=== PATIENT | female | born 1960 | race Caucasian/White ===

== ENCOUNTER 2018-04-18 07:19 | Outpatient (CLI) | payer SELFPAY ==
[2018-04-18 08:50] LABS: CHOL/HDL RATIO 3.44 (0.00-4.99)
[2018-04-18 09:02] LABS: HEMOGLOBIN A1C 5.3 % (4.5-6.2)
== END 2018-04-18 23:59 | disposition home or self-care (01) ==
LOC: HW HEART 07:19
DX: Z13.6 Encounter for screening for cardiovascular disorders (principal)
CPT/HCPCS: 36415

== ENCOUNTER 2019-02-13 07:43 | Emergency (ER) | payer OTHER, SELFPAY ==
[~2019-02-13] VITALS: Ht 165.1 cm; Wt 95.8 kg
[2019-02-13 08:24] VITALS: BP 147/64
[2019-02-13] MEDS ORDERED: HYDR-4383 PO (08:29)
== END 2019-02-13 09:15 | disposition home or self-care (01) ==
LOC: ER 07:44
DX: S60.212A Contusion of left wrist, initial encounter (principal); Z88.0 Allergy status to penicillin; Z79.899 Other long term (current) drug therapy; W18.30XA Fall on same level, unspecified, initial encounter; Y93.89 Activity, other specified; Y92.89 Other specified places as the place of occurrence of the external cause; Y99.9 Unspecified external cause status
CPT/HCPCS: 29125; 73110; 99284

== ENCOUNTER 2019-02-18 17:15 | Outpatient (CLI) | payer OTHER ==
[~2019-02-18 17:15] MED LIST: HYDR-4383 PO
== END 2019-02-18 23:59 | disposition home or self-care (01) ==
LOC: RAD 17:15
PROVIDERS: ATTEND Emergency Medicine
DX: M79.89 Other specified soft tissue disorders (principal); I10 Essential (primary) hypertension; Z88.0 Allergy status to penicillin
CPT/HCPCS: 73110

== ENCOUNTER 2019-02-22 11:42 | Emergency (ER) | payer OTHER ==
[~2019-02-22] VITALS: Ht 165.1 cm; Wt 93.2 kg
[2019-02-22 11:47] VITALS: BP 122/65
== END 2019-02-22 13:19 | disposition home or self-care (01) ==
LOC: ER 11:42
DX: S63.592A Other specified sprain of left wrist, initial encounter (principal); Z88.0 Allergy status to penicillin; Z79.899 Other long term (current) drug therapy; X50.0XXA Overexertion from strenuous movement or load, initial encounter; Y93.72 Activity, wrestling; Y92.89 Other specified places as the place of occurrence of the external cause; Y99.8 Other external cause status
CPT/HCPCS: 99281

== ENCOUNTER 2019-03-15 15:32 | Outpatient (CLI) | payer OTHER | END 2019-03-15 16:30 | disposition home or self-care (01) | LOC: ORTHO 15:32 | PROVIDERS: ATTEND Orthopaedic Surgery | DX: S62.102D Fracture of unspecified carpal bone, left wrist, subsequent encounter for fracture with routine healing (principal); X58.XXXD Exposure to other specified factors, subsequent encounter | CPT/HCPCS: 73110; G0463 ==

== ENCOUNTER 2019-07-08 11:12 | Emergency (ER) | payer OTHER ==
[~2019-07-08] VITALS: Ht 165.1 cm; Wt 95.5 kg
[2019-07-08 11:28] VITALS: BP 148/79
--- NOTE | 2019-07-08 12:15 | NUR ---
Patient seen and assessed by provider.
== END 2019-07-08 12:33 | disposition home or self-care (01) ==
LOC: ER 11:13 → EEVIPCON 11:13 → ER 12:33
DX: J06.9 Acute upper respiratory infection, unspecified (principal); Z20.828 Contact with and (suspected) exposure to other viral communicable diseases; I10 Essential (primary) hypertension; Z88.0 Allergy status to penicillin; Z79.899 Other long term (current) drug therapy
CPT/HCPCS: 87635; 99283

== ENCOUNTER 2019-09-04 09:25 | Day surgery (SDC) | payer BC ==
[~2019-09-04] VITALS: Ht 165.1 cm; Wt 93.2 kg
[2019-09-04 09:30] VITALS: BP 137/62
[2019-09-04] MEDS ORDERED: META800T87 PO (09:56)
[2019-09-04] MEDS ORDERED: TRAM50TA2 PO (09:57)
[2019-09-04] MEDS ORDERED: CELE200C PO (09:59)
[2019-09-04] MEDS ORDERED: LISI40TA4 PO (09:59)
[2019-09-04] MEDS ORDERED: PARO30TA4 PO (10:01)
[2019-09-04] MEDS ORDERED: LISD30TA PO (10:01)
[2019-09-04] MEDS ORDERED: fentaNYL/PF 50MCG/1 ML 2ML syringe ONE ×3 (10:10→11:12)
[2019-09-04] MEDS ORDERED: MIDAZolam 5mg/5ml vial ONE ×2 (10:10→10:34)
[2019-09-04 11:20] VITALS: BP 144/79
[2019-09-04 11:30] VITALS: BP 150/78
[2019-09-04 11:39] VITALS: BP 124/77
[2019-09-04 11:49] VITALS: BP 138/77
== END 2019-09-04 12:10 | disposition home or self-care (01) ==
LOC: GI LAB 09:25
PROVIDERS: ATTEND Internal Medicine Gastroenterology
DX: Z12.11 Encounter for screening for malignant neoplasm of colon (principal); K64.8 Other hemorrhoids; K63.89 Other specified diseases of intestine
CPT/HCPCS: 45378; 99152; 99153; J2250; J3010; J7040; A4620

== ENCOUNTER 2022-10-28 09:29 | Outpatient (CLI) | payer BC ==
[~2022-10-28 09:29] MED LIST changes: +CELE200C PO; -HYDR-4383 PO; +LISD30TA PO; +LISI40TA13 PO; +META800T87 PO; +SERT-434 PO; +TRAM50TA2 PO
[2022-10-28 10:11] LABS: LYMPHOCYTES # (AUTO) 1.3 X10'3 (1.1-4.8); MEAN CORPUSCULAR VOLUME 92.6 FL (78-98); MONOCYTES # (AUTO) 0.3 X10'3 (0-0.9)
[2022-10-28 10:13] LABS: BASOPHILS # (AUTO) 0.1 X10'3 (0-0.2); BASOPHILS % (AUTO) 1.2 % (0-1); EOSINOPHILS # (AUTO) 0.2 X10'3 (0-0.9); EOSINOPHILS % (AUTO) 3.9 % (0-6); HEMATOCRIT 42.9 % (35.0-45.0); HEMOGLOBIN 14.6 g/dl (12.0-16.0); LYMPHOCYTES % (AUTO) 29.1 % (21-51); MEAN CORPUSCULAR HEMOGLOBIN 31.5 PG (27.0-31.0); MEAN PLATELET VOLUME 7.8 FL (7.4-10.4); MONOCYTES % (AUTO) 7.1 % (2-12); NEUTROPHILS # (AUTO) 2.6 X10'3 (1.8-7.7); NEUTROPHILS % (AUTO) 58.7 % (42-75); PLATELET COUNT 275 X10'3 (140-440); RED BLOOD COUNT 4.63 X10'6 (4.20-5.60); RED CELL DISTRIBUTION WIDTH 13.3 % (11.5-14.5); WHITE BLOOD COUNT 4.3 X10'3 (4.5-11.0)
[2022-10-28 10:35] LABS: ALANINE AMINOTRANSFERASE 34 U/L (12-78); ALBUMIN 3.9 G/DL (3.4-5.0); ALBUMIN/GLOBULIN RATIO 1.1 (1.1-1.5); ALKALINE PHOSPHATASE 90 IU/L (46-116); ANION GAP 6 (8-16); ASPARTATE AMINO TRANSFERASE 27 U/L (10-37); BILIRUBIN,TOTAL 0.5 MG/DL (0.1-1.0); BLOOD UREA NITROGEN 20 MG/DL (7-18); BUN/CREATININE RATIO 22.7 (10.0-20.0); CHLORIDE 107 MMOL/L (99-107); CHOL/HDL RATIO 3.8 (0.00-4.99); CHOLESTEROL 245 MG/DL (0-200); CREATININE 0.88 MG/DL (0.40-0.90); GLUCOSE 108 MG/DL (70-104); HDL CHOLESTEROL 64 MG/DL (35-60); LDL CHOLESTEROL 145 MG/DL (50-100); POTASSIUM 4.1 MMOL/L (3.5-5.1); SODIUM 141 MMOL/L (135-145); TOTAL PROTEIN 7.3 G/DL (6.4-8.2); TRIGLYCERIDES 77 MG/DL (20-135); eGFR 65 ML/MIN
== END 2022-10-28 23:59 | disposition home or self-care (01) ==
LOC: LAB 09:29
PROVIDERS: ATTEND Physician Assistant
DX: I10 Essential (primary) hypertension (principal); E78.5 Hyperlipidemia, unspecified
CPT/HCPCS: 80053; 80061; 85025